=== PATIENT | female | born 1990 | race African-American/Black ===

== ENCOUNTER 2017-02-13 22:10 | Emergency (ER) | payer MEDICAID, OTHER ==
[~2017-02-13] VITALS: Ht 160 cm; Wt 49.9 kg
[2017-02-13 23:10] LABS: CONDITION Y; Hematocrit 41.4 % (36.0-46.0); Hemoglobin 13.9 g/dL (12.2-16.2); Mean Corpuscular Hgb Conc. 33.5 g/dL (32.0-36.0); Mean Corpuscular Volume 86.5 fL (80.0-100.0); Mean Platelet Volume 8.1 fL (7.4-10.4); Platelet Count (auto) 308 10^3/uL (140-450); Red Cell Distribution Width 13.7 % (11.6-16.0); SUSPECT SEE PRINTOUT; White Blood Cell 20.2 10^3/uL (4.4-10.8)
[2017-02-13 23:20] LABS: Metamyelocytes % 0; Myelocytes % 0; Promyelocytes % 0; Reactive Lymphocytes 0
[2017-02-13 23:34] LABS: Platelet Estimate Adequate
[2017-02-13 23:54] LABS: Alkaline Phosphatase 69 U/L (45-117); Anion Gap 14 (5-15); Aspartate Aminotransferase 15 U/L (15-37); BUN/Creatinine Ratio 24.5; Blood Urea Nitrogen 24 mg/dL (7-18); Calcium 10.1 mg/dL (8.5-10.1); Carbon Dioxide 21 mmol/L (21-32); Chloride 110 mmol/L (98-107); GFR African American 86 mL/min; GFR Non-African American 71 mL/min; Glucose 138 mg/dL (74-106); Potassium 3.9 mmol/L (3.5-5.1); Sodium 145 mmol/L (136-145); Total Protein 9.5 g/dL (6.4-8.2)
[2017-02-14 03:36] LABS: Urine Bilirubin Negative (Negative); Urine Blood TRACE /uL (Negative); Urine Color Yellow (Yellow); Urine Glucose Normal (Normal); Urine Mucus MANY (None Seen); Urine Nitrite Negative (Negative); Urine RBC 10 /hpf (0 - 4); Urine Squamous Epithelial Cell FEW /hpf (<5); Urine Urobilinogen Normal (Negative); Urine pH 6.5 (5.0-8.0)
[2017-02-14 03:37] LABS: Urine Ketone 2+ (Negative)
[2017-02-14] MEDS ORDERED: ONDANSETRON HCL 4 MG/2 ML VIAL IV ONE (04:45)
[2017-02-14] MEDS ORDERED: SODIUM CHLORIDE 0.9% 1,000 ML IV ONE (04:45)
[2017-02-14 05:13] LABS: Amylase 31 U/L (25-115)
[2017-02-14] MEDS ORDERED: cefTRIAXone SOD 1,000 MG VL IV ONE (05:30)
[2017-02-14] MEDS ORDERED: cefTRIAXone 1GM/50ML D5W 50 ML IV ONE (05:33)
[2017-02-14] MEDS ORDERED: ACETAMINOPHEN/CODEINE#3 (300/30mg) TAB PO ONE (05:45)
[2017-02-14 06:31] VITALS: BP 100/55
== END 2017-02-14 06:33 | disposition home or self-care (01) ==
LOC: ER 22:10
DX: K52.9 Noninfective gastroenteritis and colitis, unspecified (principal); D72.829 Elevated white blood cell count, unspecified; N30.01 Acute cystitis with hematuria
CPT/HCPCS: 36415; 74176; 80053; 80320; 81001; 81025; 82150; 83690; 85007; 85027; 96361; 96374; 96375; 99285; J0696; J2405; J7030